=== PATIENT | male | born 1955 | race Two or more races ===

== ENCOUNTER 2025-01-17 09:04 | Observation (INO) | payer MEDICARE, BC ==
[~2025-01-17] VITALS: Ht 175.3 cm; Wt 67.2 kg
[~2025-01-17 09:04] MED LIST: SUCR1 PO
[2025-01-17] MEDS ORDERED: Diltiazem HCl 5 MG / ML 5ML Vial IV ONE ×2 (09:20→10:30)
[2025-01-17 09:32] LABS: BASOPHILS ABSOLUTE AUTO 0.06 K/mm3 (0.00-0.23); BASOPHILS PERCENT AUTO 1 % (0-2); EOSINOPHILS ABSOLUTE AUTO 0.07 K/mm3 (0.00-0.68); EOSINOPHILS PERCENT AUTO 1 % (0-6); Hematocrit 40.1 % (37.0-53.0); Hemoglobin 12.9 g/dL (13.5-17.5); IMMATURE GRAN ABSOLUTE AUTO 0.02 K/mm3 (0.00-0.10); IMMATURE GRAN PERCENT AUTO 0 % (0-1); LYMPHOCYTES ABSOLUTE AUTO 0.93 K/mm3 (0.84-5.20); LYMPHOCYTES PERCENT AUTO 16 % (21-46); MONOCYTES ABSOLUTE AUTO 0.73 K/mm3 (0.16-1.47); MONOCYTES PERCENT AUTO 12 % (4-13); Mean Corpuscular HGB Conc 32.2 g/dL (31.5-36.5); Mean Corpuscular Volume 82 fL (80-100); NEUTROPHILS ABSOLUTE AUTO 4.11 K/mm3 (1.96-9.15); NEUTROPHILS PERCENT AUTO 70 % (41-73); NRBC ABSOLUTE 0.00 K/mm3 (0.00-0.02); NRBC Auto 0.0 /100 WBC (0.0-0.2); Platelet Count 363 K/mm3 (150-400); RDW Coefficient Variation 17.0 % (11.7-14.2); RDW Standard Deviation 49.8 fL (35.1-46.3)
[2025-01-17 09:53] LABS: D-Dimer, Quantitative 0.34 mg/L FEU (0.00-0.52); Prothrombin Time Results 10.8 Sec (9.7-11.5)
[2025-01-17 10:06] LABS: Magnesium, Blood 1.9 mg/dL (1.6-2.4)
[2025-01-17 10:09] LABS: Alanine Aminotransfer (ALT/SGP 31.0 U/L (12-78); Albumin, Blood 3.4 g/dL (3.4-5.0); Albumin/Globulin Ratio 0.8 (0.8-1.8); Anion Gap 10.0 mmol/L (3-11); Aspartate Aminotrans (AST/SGOT 48.0 U/L (12-37); Bilirubin, Total 0.8 mg/dL (0.1-1.0); Blood Urea Nitrogen 10.0 mg/dL (8-24); CO2, Blood 23.0 mmol/L (21-32); Calcium, Blood 9.0 mg/dL (8.5-10.1); Chloride, Blood 106.0 mmol/L (98-108); Creatinine, Blood 0.85 mg/dL (0.60-1.20); Globulin, Blood 4.1 g/dL (2.2-4.0); Glucose, Blood 109.0 mg/dL (70-99); Potassium, Blood 3.9 mmol/L (3.5-5.5); Sodium, Blood 135.0 mmol/L (136-145); Thyroid Stimulating Hormone 2.27 uIU/mL (0.360-4.800); Total Protein, Blood 7.5 g/dL (6.4-8.2)
[2025-01-17] MEDS ORDERED: PANTOPRAZOLE SO40 M2 PO (10:19)
[2025-01-17] MEDS ORDERED: AMLODIPINE BESY10 MG PO (10:19)
[2025-01-17] MEDS ORDERED: Lisinopril2.5 MG PO (10:19)
[2025-01-17] MEDS ORDERED: Diltiazem HCl 180 MG Cap.CD PO SCH (14:00)
[2025-01-17 15:41] VITALS: BP 139/75
--- NOTE | 2025-01-17 16:02 | NUR ---
PCU Admit / Call to Pt brought to PCU-1 by jennyfer from ER at approx 1530. Pt A&O x4, able to independently stand & ambulate from [facility] to PCU bed. Monitor showing afib, HR 110s upon arrival w/ cardizem gtt infusing @ 5mg/hr. Pt then w/ conversion to NSR, HR 80s-90s at approx 1540. PO cardizem reported & documented as given in ER prior to pt arrival to PCU. Cardizem gtt placed on standby. MD Rios notified of pt conversion. w/ plan for pt to remain in hospital overnight & potentially discharge home tomorrow.
[2025-01-17 19:45] VITALS: BP 122/73
[2025-01-17 23:21] VITALS: BP 118/71
[2025-01-18 04:01] LABS: BASOPHILS ABSOLUTE AUTO 0.04 K/mm3 (0.00-0.23); BASOPHILS PERCENT AUTO 1 % (0-2); EOSINOPHILS ABSOLUTE AUTO 0.23 K/mm3 (0.00-0.68); EOSINOPHILS PERCENT AUTO 4 % (0-6); Hematocrit 38.0 % (37.0-53.0); Hemoglobin 12.3 g/dL (13.5-17.5); IMMATURE GRAN ABSOLUTE AUTO 0.02 K/mm3 (0.00-0.10); IMMATURE GRAN PERCENT AUTO 0 % (0-1); LYMPHOCYTES ABSOLUTE AUTO 0.87 K/mm3 (0.84-5.20); LYMPHOCYTES PERCENT AUTO 13 % (21-46); MONOCYTES ABSOLUTE AUTO 0.68 K/mm3 (0.16-1.47); MONOCYTES PERCENT AUTO 10 % (4-13); Mean Corpuscular HGB Conc 32.4 g/dL (31.5-36.5); Mean Corpuscular Volume 83 fL (80-100); NEUTROPHILS ABSOLUTE AUTO 4.80 K/mm3 (1.96-9.15); NEUTROPHILS PERCENT AUTO 72 % (41-73); NRBC ABSOLUTE 0.00 K/mm3 (0.00-0.02); NRBC Auto 0.0 /100 WBC (0.0-0.2); Platelet Count 304 K/mm3 (150-400); RDW Coefficient Variation 17.0 % (11.7-14.2); RDW Standard Deviation 51.0 fL (35.1-46.3)
[2025-01-18 04:33] LABS: Alanine Aminotransfer (ALT/SGP 24.0 U/L (12-78); Albumin, Blood 3.1 g/dL (3.4-5.0); Albumin/Globulin Ratio 0.8 (0.8-1.8); Anion Gap 8.0 mmol/L (3-11); Aspartate Aminotrans (AST/SGOT 30.0 U/L (12-37); Bilirubin, Total 0.7 mg/dL (0.1-1.0); Blood Urea Nitrogen 11.0 mg/dL (8-24); CO2, Blood 25.0 mmol/L (21-32); Calcium, Blood 8.6 mg/dL (8.5-10.1); Chloride, Blood 106.0 mmol/L (98-108); Creatinine, Blood 1.03 mg/dL (0.60-1.20); Globulin, Blood 3.7 g/dL (2.2-4.0); Glucose, Blood 102.0 mg/dL (70-99); Potassium, Blood 3.7 mmol/L (3.5-5.5); Sodium, Blood 135.0 mmol/L (136-145); Total Protein, Blood 6.8 g/dL (6.4-8.2)
[2025-01-18 04:57] VITALS: BP 105/66
--- NOTE | 2025-01-18 06:44 | NUR ---
PT ALERT AND ORIENTED X4. NO C/O CHEST PAIN, PRESSURE OR PALPITATIONS. AMBULATING INDEPENDENTLY IN THE ROOM AND BATHROOM.VITALS WNL. ON ROOM AIR. CALL MILAN WITHIN REACH.
[2025-01-18 07:34] VITALS: BP 120/78
[2025-01-18] MEDS ORDERED: ELIQUIS5 M2 PO (10:56)
[2025-01-18] MEDS ORDERED: DILT180 PO (10:57)
--- NOTE | 2025-01-18 11:19 | NUR ---
Discharge Home Pt A&O x4. VSS. Spo2 > 92% on RA. Monitor showing NSR, HR 70s-90s. Pt denying palpitations, CP/discomfort. Zio patch placed by [facility] staff member per MD order. Discharge instructions reviewed w/ pt & sent home w/ pt. PIV removed. Pt taken out in wheelchair w/ belongings & pt spouse accompanying.
== END 2025-01-18 11:15 | disposition home or self-care (01) ==
LOC: ER 09:04 → PCU 09:05
PROVIDERS: Physician Assistant; ADMIT Student in an Organized Health Care Education/Training Program
DX: I48.91 Unspecified atrial fibrillation (principal); I10 Essential (primary) hypertension; K21.9 Gastro-esophageal reflux disease without esophagitis; D64.9 Anemia, unspecified; R73.03 Prediabetes; R74.01 Elevation of levels of liver transaminase levels; Z79.899 Other long term (current) drug therapy
CPT/HCPCS: 36415; 71046; 80053; 83036; 83735; 83880; 84443; 84484; 85025; 85379; 85610; 93005; 93010; 93246; 93306; 96374; 96375; 96376; 99285-25; A9270; G0378